=== PATIENT | female | born 1990 | race Caucasian/White ===

== ENCOUNTER 2017-01-19 22:41 | Emergency (ER) | payer BC, OTHER ==
[2017-01-19 22:49] VITALS: RESP 16
--- NOTE | 2017-01-19 22:55 | EDPHY ---
H & P Stated Complaint: fall ~10' onto L foot, c/o akle pain/swelling HPI/ROS: HPI CHIEF COMPLAINT: [ ] HISTORY OF PRESENT ILLNESS: [Need 4: Location, Duration, Severity, Quality, Context, Timing Modifying Factors, Associated S&S] Past Medical History: Past Surgical History: Social History: Family History: ROS REVIEW OF SYSTEMS: A comprehensive 10 point review of systems is otherwise negative aside from elements mentioned in the history of present illness. Exam Constitutional triage nursing summary reviewed, vital signs reviewed, awake/ alert. Eyes normal conjunctivae and sclera, EOMI, PERRLA. HENT normal inspection, atraumatic, moist mucus membranes, no epistaxis, neck supple/ no meningismus, no raccoon eyes. Respiratory clear to auscultation bilaterally, normal breath sounds, no respiratory distress, no wheezing. Cardiovascular rate normal, regular rhythm, no murmur, no edema, distal pulses normal. Gastrointestinal soft, non-tender, no rebound, no guarding, normal bowel sounds, no distension, no pulsatile mass. Genitourinary no CVA tenderness. Musculoskeletal no midline vertebral tenderness, full range of motion, no calf swelling, no tenderness of extremities, no meningismus, good pulses, neurovascularly intact. Skin pink, warm, & dry, no rash, skin atraumatic. Neurologic awake, alert and oriented x 3, AAOx3, moves all 4 extremities equally, motor intact, sensory intact, CN II-XII intact, normal cerebellar, normal vision, normal speech. Psychiatric normal mood/affect. Heme/Lymph/Immune no lymphadenopathy. Differential Diagnosis: Medical Decision Making: Re-evaluation: Source: Patient - Personal History LMP (Females 10-55): 15-21 Days Ago Current Tetanus/Diphtheria Vaccine: Yes Current Tetanus Diphtheria and Acellular Pertussis (TDAP): Yes - Medical/Surgical History Hx Asthma: No Hx Chronic Respiratory Disease: No Hx Diabetes: No Hx Cardiac Disease: No Hx Renal Disease: No Hx Cirrhosis: No Hx Alcoholism: No Hx HIV/AIDS: No Hx Splenectomy or Spleen Trauma: No Other PMH: tonsillectomy - Social History Smoking Status: Never smoked Constitutional: Initial Vital Signs Temperature (C) 36.5 C 01/19/17 22:45 Heart Rate 97 01/19/17 22:45 Respiratory Rate 16 01/19/17 22:45 Blood Pressure 129/70 H 01/19/17 22:45 O2 Sat (%) 98 01/19/17 22:45 O2 Delivery Mode Room Air Allergies/Adverse Reactions: No Known Allergies Allergy (Verified 01/19/17 22:49) Home Medications: Medication Instructions Recorded NK [No Known Home Meds] 01/19/17 Departure - Departure Referrals: NONE *PRIMARY CARE P,. [Primary Care Provider] - As per Instructions
--- NOTE | 2017-01-19 23:23 | EDPHY ---
H & P Time Seen by Provider: 01/19/17 23:02 HPI/ROS: CHIEF COMPLAINT: Left ankle pain HISTORY OF PRESENT ILLNESS: 26-year-old female complaining of left medial foot pain after she fell approximately 10 feet rock climbing yesterday. She was initially able to bear weight however has been and able to do so since. No back pain. No calcaneus pain. No hip pain. No knee pain. No paresthesia. No calcaneus pain. PHYSICAL EXAM (Prior to examination, patient consented to physical exam, hands were washed and my usual and customary physical exam procedures followed) 1) GENERAL: Well-developed, well-nourished, alert and oriented. Appears to be in no acute distress. 2) HEAD: Normocephalic 3) HEENT: Pupils equal, round, reactive to light bilaterally. 4) LUNGS: Breathing comfortably. 5) MUSCULOSKELETAL: Tender to palpation medial aspect of aspect, proximal tibia and fibula nontender .5th MT nontender negative Brown test, compartments soft 6) SKIN: intact 7) VASCULAR: DP,PT pulses and cap refill present and brisk 8) back: No midline thoracic lumbar sacral pain. DIFFERENTIAL DIAGNOSIS: in no particular order including but not limited to fracture, sprain, compartment syndrome Procedure: Crutches indications for crutch use discussed with patient. Patient fitted for crutches by ER staff. Observed ambulating with crutches. I think the patient has the capacity to safely use crutches. Usual and customary crutch walking precautions provided Procedure: Splint A [jesus boot splint was applied by ER geothermal field technician. After application of the splint I returned and re-examined the patient. The splint was adequately immobilizing the joint and distal to the splint the patient's circulation and sensation were intact. Patient shows no signs of compartment syndrome. Was given orthopedic precautions. Smoking Status: Never smoked Constitutional: Initial Vital Signs Temperature (C) 36.5 C 01/19/17 22:45 Heart Rate 97 01/19/17 22:45 Respiratory Rate 16 01/19/17 22:45 Blood Pressure 129/70 H 01/19/17 22:45 O2 Sat (%) 98 03/12/17 22:45 O2 Delivery Mode Room Air Allergies/Adverse Reactions: No Known Allergies Allergy (Verified 01/19/17 22:49) Home Medications: Medication Instructions Recorded NK [No Known Home Meds] 01/19/17 MDM/Departure - MDM Diagnostics: Left Ankle 3 Views History: Injury with pain and swelling. Comparison: None available. Findings: There is an age-indeterminate avulsion fracture inferior to the lateral malleolus. There is subtle lucency through the medial aspect of the talus on the AP view that may be related to projectional artifact from a bone island seen better on the mortise view. Alignment is normal. The talar dome and ankle mortise are intact. There is moderate lateral soft tissue swelling. Impression: 1. Age-indeterminate avulsion fracture of the lateral malleolus. 2. Lucency in the medial malleolus that could be related to summation artifact or less likely a nondisplaced fracture. Findings discussed with Trish Jackson 01/19/2017 at 23:29. Dictated By: Marcellus Martell MD Images reviewed by myself Medications Given: Discontinued Medications Hydrocodone Bitart/Acetaminophen ([place] 5/325mg Prepack#6) 1 btl TAKEHOME EDNOW ONE Stop: 01/19/17 23:31 Last Admin: 01/19/17 23:33 Dose: 1 btl - Depart Disposition: Home, Routine, Self-Care Clinical Impression: Ankle fracture, left Qualifiers: Encounter type: initial encounter Fracture type: closed Qualified Code(s): S82.892A - Other fracture of left lower leg, initial encounter for closed fracture Condition: Good Instructions: Ankle Fracture (ED) Additional Instructions: Return to the ER immediately if you experience discoloration, have worsening pain, numbness, tingling, or any other symptoms that concern you. If you received x-rays in the emergency department today, be advised, that ligamentous , tendon, muscular, and other non-bony injury cannot be fully ruled out. Try to keep your affected extremity elevated above the level of your chest, and keep cold packs on the affected area, for the next 48 hours. Referrals: Geo Evans MD [Medical Doctor] - 2-3 days, call for appt.
[2017-01-19] MEDS ORDERED: HYDROCOD/APAP 5/325 PREPACK#6 BTL TAKEHOME ONE (23:30)
[2017-01-19 23:49] VITALS: BP 126/76; PULSE 81; TEMP 98.2; O2SAT 94
== END 2017-01-19 23:57 | disposition home or self-care (01) ==
DX: S82.892A Other fracture of left lower leg, initial encounter for closed fracture (principal); W17.89XA Other fall from one level to another, initial encounter; Y99.8 Other external cause status; Y93.31 Activity, mountain climbing, rock climbing and wall climbing
CPT/HCPCS: L4386